=== PATIENT | female | born 1970 | race Two or more races ===

== ENCOUNTER 2024-12-12 11:50 | Emergency (ER) | payer MEDICAID, OTHER ==
[~2024-12-12] VITALS: Ht 165.1 cm; Wt 78.5 kg
[~2024-12-12 11:50] MED LIST: HYDR1TAB PO
[2024-12-12 12:10] VITALS: TEMP 98.2
[2024-12-12] MEDS ORDERED: IV NS 0.9% 1,000 ML BAG IV ONE (12:30)
[2024-12-12] MEDS ORDERED: PROCHLORPERAZINE EDISYLATE 10 MG/2 ML VIAL IVP ONE (12:30)
[2024-12-12] MEDS ORDERED: dexaMETHasone SOD PHOSPHATE 10 MG/ML VIAL IV ONE (12:30)
[2024-12-12] MEDS ORDERED: KETOROLAC TROMETHAMINE INJ 30 MG/ML VIAL IV ONE (12:30)
[2024-12-12] MEDS ORDERED: KETOROLAC TROMETHAMINE INJ 30 MG/ML VIAL ONE (12:38)
[2024-12-12] MEDS ORDERED: dexaMETHasone SOD PHOSPHATE 0 ML ONE (12:38)
[2024-12-12] MEDS ORDERED: PROCHLORPERAZINE EDISYLATE 10 MG/2 ML VIAL ONE (12:38)
[2024-12-12] MEDS ORDERED: BUTALB/APAP/CAFFEINE 1 EACH TABLET ONE (13:20)
[2024-12-12] MEDS: BUTALB/APAP/CAFFEINE 1 EACH TABLET PO STA (13:25)
[2024-12-12 14:34] VITALS: BP 122/89; O2SAT 97
== END 2024-12-12 14:33 | disposition home or self-care (01) ==
LOC: ER 11:50
DX: G43.909 Migraine, unspecified, not intractable, without status migrainosus (principal); R59.1 Generalized enlarged lymph nodes; I11.9 Hypertensive heart disease without heart failure
CPT/HCPCS: 99284; 70450; 70490; J1885; J0780; J7030; J1100